=== PATIENT | male | born 1965 | race Caucasian/White ===

== ENCOUNTER 2021-10-13 08:10 | Outpatient (CLI) | payer BC ==
[2021-10-13 08:52] LABS: Mean Corpuscular HGB CONC 33.7 g/dL (32.0-36.0); Mean Corpuscular Hemoglobin 31.3 pg (27.0-33.0); Mean Corpuscular Volume 92.8 fl (81.2-95.1); Mean Platelet Volume 9.4 fl (7.4-10.4); Platelet Count 242 10x3/uL (150-450); RBC Distribution Width 13.2 % (11.5-14.5); Red Blood Cell (RBC) Count 4.47 10x6/uL (4.32-5.72); White Blood Cell (WBC) Count 5.9 10x3/uL (3.5-10.5)
[2021-10-13 09:09] LABS: Anion Gap 12 mmol/L (10-20); BUN (Urea Nitrogen) 18 mg/dL (8.4-25.7); Calc. Creatinine Clearance 0 mL/min (70-130); Calcium 9.6 mg/dL (7.8-10.44); Carbon Dioxide 29 mmol/L (22-29); Chloride 102 mmol/L (98-107); Glucose 111 mg/dL (70-105); Potassium 4.4 mmol/L (3.5-5.1); Sodium 139 mmol/L (136-145)
[2021-10-13 09:14] LABS: INR-International Normal Ratio 1.1
[2021-10-13 20:00] LABS: SARS-CoV-2 PCR by NAA Not Detected (NotDetected)
== END 2021-10-13 08:11 | disposition home or self-care (01) ==
LOC: LABBT 08:10
PROVIDERS: ATTEND Internal Medicine Cardiovascular Disease
DX: Z01.812 Encounter for preprocedural laboratory examination (principal); I48.0 Paroxysmal atrial fibrillation; Z20.822 Contact with and (suspected) exposure to COVID-19
CPT/HCPCS: 80048; 85027; 85610; U0003; U0005

== ENCOUNTER 2021-10-16 05:44 | Day surgery (SDC) | payer BC ==
[2021-10-14 14:24] VITALS: BMI 38.6
[2021-10-16] MEDS ORDERED: Heparin 10,000 UNITS/ 10 ML VIAL ONE (06:40)
[2021-10-16] MEDS ORDERED: Protamine Sulfate 50 MG/5 ML VIAL ONE (06:40)
[2021-10-16] MEDS ORDERED: Heparin 25,000 units/D5W 500 ML ONE (06:40)
[2021-10-16] MEDS ORDERED: fentaNYL Citrate/PF 100 MCG/2 ML SYRINGE ONE ×2 (07:11→10:45)
[2021-10-16] MEDS ORDERED: Phenylephrine 10 MG/ML VIAL ONE (07:11)
== END 2021-10-16 13:30 | disposition home or self-care (01) ==
LOC: SDC 05:44
PROVIDERS: ATTEND Internal Medicine Cardiovascular Disease
PROC: B246ZZ4 Ultrasonography of Right and Left Heart, Transesophageal (ICD-10-PCS; principal; 2021-10-16)
PROC: 02583ZZ Destruction of Conduction Mechanism, Percutaneous Approach (ICD-10-PCS; principal; 2021-10-16)
PROC: 02K83ZZ Map Conduction Mechanism, Percutaneous Approach (ICD-10-PCS; principal; 2021-10-16)
DX: I48.0 Paroxysmal atrial fibrillation (principal); I48.3 Typical atrial flutter; I11.9 Hypertensive heart disease without heart failure; E78.5 Hyperlipidemia, unspecified; E66.9 Obesity, unspecified; Z68.38 Body mass index [BMI] 38.0-38.9, adult; Z86.16 Personal history of COVID-19; Z87.891 Personal history of nicotine dependence; Z79.01 Long term (current) use of anticoagulants; Z79.899 Other long term (current) drug therapy
CPT/HCPCS: 85347; 93005; 93312; 93613; 93655; 93656; 93662; C1730; C1731; C1732; C1759; C1760; C1894; C2630; J1644; J2370; J2720